=== PATIENT | male | born 1990 | race Caucasian/White ===

== ENCOUNTER 2017-09-15 15:41 | Emergency (ER) | payer SELFPAY ==
[~2017-09-15] VITALS: Ht 175.3 cm; Wt 84.0 kg
[2017-09-15 15:56] VITALS: Ht 175.3 cm; Wt 84.0 kg
[2017-09-16] MEDS ORDERED: TRAM50TA2 PO (11:12)
[2017-09-16] MEDS ORDERED: IBUP-1542 PO (11:12)
== END 2017-09-15 19:21 | disposition left against medical advice (07) ==
LOC: FTE 15:41 → E/R 19:21
DX: Z53.21 Procedure and treatment not carried out due to patient leaving prior to being seen by health care provider (principal)

== ENCOUNTER 2017-09-16 10:20 | Emergency (ER) | payer OTHER ==
[~2017-09-16] VITALS: Wt 84.2 kg
[2017-09-16] MEDS ORDERED: TRAM50TA2 PO (11:12)
[2017-09-16] MEDS ORDERED: IBUP-1542 PO (11:12)
--- NOTE | 2017-09-16 11:55 | ERD ---
ER Documentation Chief Complaint Chief Complaint TOOTH ACHE HPI 7-year-old male presents the emergency department complaining of left lower molar dental pain for the past week. Patient states that he had dental appointment next week. He was seen at a different facility 2 days ago and given [place] and amoxicillin, patient states that he compliant with antibiotic finished the [place]. He denies any fevers. ROS All systems reviewed and are negative except as per history of present illness. Medications Home Meds Active Scripts Ibuprofen* (Motrin*) 600 Mg Tab, 600 MG PO Q6H Y for PAIN AND OR ELEVATED TEMP, #30 TAB Prov:ERIBERTO MIJARES PA-C 09/16/17 Tramadol HCl (Tramadol HCl) 50 Mg Tablet, 50 MG PO Q6 Y for PAIN, #20 TAB Prov:ERIBERTO MIJARES PA-C 09/16/17 PMhx/Soc Medical and Surgical Hx: pt denies Medical Hx, pt denies Surgical Hx Hx Alcohol Use: No Hx Substance Use: No Hx Tobacco Use: No Smoking Status: Never smoker Physical Exam Vitals Vital Signs Date Time Temp Pulse Resp B/P Pulse Ox O2 Delivery O2 Flow Rate FiO2 09/16/17 10:22 99.1 98 18 138/76 99 Physical Exam Const: wdwn Head: Atraumatic Eyes: Normal Conjunctiva ENT: Normal External Ears, Nose poor dental hygiene left lower molar Neck: Full range of motion..~ No meningismus. Resp: Clear to auscultation bilaterally Cardio: Regular rate and rhythm, no murmurs Abd: Soft, non tender, non distended. Normal bowel sounds Skin: No petechiae or rashes Back: No midline or flank tenderness Ext: No cyanosis, or edema Neur: Awake and alert Psych: Normal Mood and Affect Procedures/MDM 27-year-old male presents the emergency department with left lower molar pain there is no evidence of facial cellulitis, deep space infection. Patient is stable to be discharged home to follow-up with dentist. Prescription for tramadol ibuprofen was given Departure Diagnosis: Primary Impression: Pain, dental Condition: Stable Patient Instructions: Dental Pain Additional Instructions: FOLLOW UP WITH YOUR PRIMARY CARE PHYSICIAN TOMORROW.Return to this facility if you are not improving as expected. Take all medicines as directed. Return to this facility if you are not improving as expected. ERIBERTO MIJARES-C Sep 16, 2017 11:55
== END 2017-09-16 11:25 | disposition home or self-care (01) ==
LOC: FTE 10:20
DX: K08.89 Other specified disorders of teeth and supporting structures (principal)
CPT/HCPCS: 99283

== ENCOUNTER 2017-09-23 20:12 | Emergency (ER) | payer SELFPAY ==
[~2017-09-23] VITALS: Ht 175.3 cm; Wt 86.0 kg
[~2017-09-23 20:12] MED LIST: IBUP-1542 PO; TRAM50TA2 PO
[2017-09-23 20:25] VITALS: Ht 175.3 cm; Wt 86.0 kg
--- NOTE | 2017-09-23 21:42 | ERD ---
ER Documentation Chief Complaint Chief Complaint sharp abd pain started today; hx of hep c HPI 27-year-old male presents here to emergency department for complaints of right upper quadrant abdominal pain that started today. Patient describes the pain as sharp pain, 6/10 worse with with eating. Patient has history of hepatitis C. Patient denies any nausea vomiting diarrhea or constipation. Patient without any fever or chills. Patient does not have diarrhea or constipation. ROS All systems reviewed and are negative except as per history of present illness. Medications Home Meds Active Scripts Ibuprofen* (Motrin*) 600 Mg Tab, 600 MG PO Q6H Y for PAIN AND OR ELEVATED TEMP, #30 TAB Prov:ERIBERTO MIJARES PA-C 09/16/17 Tramadol HCl (Tramadol HCl) 50 Mg Tablet, 50 MG PO Q6 Y for PAIN, #20 TAB Prov:ERIBERTO MIJARES PA-C 09/16/17 Allergies Allergies: Coded Allergies: No Known Allergy (Unverified , 09/23/17) PMhx/Soc Medical and Surgical Hx: pt denies Medical Hx, pt denies Surgical Hx Hx Alcohol Use: No Hx Substance Use: No Hx Tobacco Use: No FmHx Family History: No coronary disease, No diabetes, No other Physical Exam Vitals Vital Signs Date Time Temp Pulse Resp B/P Pulse Ox O2 Delivery O2 Flow Rate FiO2 09/23/17 20:25 98.6 118 20 138/88 97 Physical Exam GENERAL: The patient is well developed and appropriate for usual state of health, in no apparent distress. CHEST: Clear to auscultation bilaterally. There are no rales, wheezes or rhonchi. HEART: Regular rate and rhythm. No murmurs, clicks, rubs or gallops. No S3 or S4. ABDOMEN: Soft, nontender and nondistended. Good bowel sounds. No rebound or guarding. No gross peritonitis. No gross organomegaly or masses. No Jenkins sign or McBurney point tenderness. BACK: No midline or flank tenderness. EXTREMITIES: Equal pulses bilaterally. There is no peripheral clubbing, cyanosis or edema. No focal swelling or erythema. Full range of motion. Grossly neurovascularly intact. NEURO: Alert and oriented. Cranial nerves 2-12 intact. Motor strength in all 4 extremities with 5/5 strength. Sensation grossly intact. Normal speech and gait. SKIN: There is no apparent rash or petechia. The skin is warm and dry. HEMATOLOGIC AND LYMPHATIC: There is no evidence of excessive bruising or lymphedema. No gross cervical, axillary, or inguinal lymphadenopathy. Result Diagram: 09/23/17210209/23/172102 Results 24 hrs Laboratory Tests Test 09/23/17 21:03 09/23/17 21:20 White Blood Count 8.910^3/ul Red Blood Count 4.9510^6/ul Hemoglobin 14.0g/dl Hematocrit 42.9% Mean Corpuscular Volume 86.7fl Mean Corpuscular Hemoglobin 28.3pg Mean Corpuscular Hemoglobin Concent 32.6g/dl Red Cell Distribution Width 13.2% Platelet Count 13498^3/UL Mean Platelet Volume 9.1fl Neutrophils % 69.4% Lymphocytes % 20.9% Monocytes % 8.1% Eosinophils % 0.5% Basophils % 0.5% Nucleated Red Blood Cells % 0.0/100WBC Neutrophils # 6.210^3/ul Lymphocytes # 1.910^3/ul Monocytes # 0.710^3/ul Eosinophils # 0.010^3/ul Basophils # 0.010^3/ul Nucleated Red Blood Cells # 0.010^3/ul Sodium Level 141mmol/L Potassium Level 3.7mmol/L Chloride Level 99mmol/L Carbon Dioxide Level 32mmol/L Anion Gap 14 Blood Urea Nitrogen 10mg/dl Creatinine 0.76mg/dl Glucose Level 120mg/dl Calcium Level 10.1mg/dl Total Bilirubin 0.3mg/dl Direct Bilirubin 0.00mg/dl Indirect Bilirubin 0.3mg/dl Aspartate Amino Transf (AST/SGOT) 33IU/L Alanine Aminotransferase (ALT/SGPT) 73IU/L Alkaline Phosphatase 81IU/L Total Protein 7.5g/dl Albumin 4.0g/dl Globulin 3.50g/dl Albumin/Globulin Ratio 1.14 Lipase 22U/L Urine Color YELLOW Urine Clarity CLEAR Urine pH 5.0 Urine Specific [place] 1.013 Urine Ketones NEGATIVEmg/dL Urine Nitrite NEGATIVEmg/dL Urine Bilirubin NEGATIVEmg/dL Urine Urobilinogen 1+mg/dL Urine Leukocyte Esterase NEGATIVELeu/ul Urine Hemoglobin NEGATIVEmg/dL Urine Glucose NEGATIVEmg/dL Urine Total Protein NEGATIVEmg/dl PROCEDURE: US gallbladder . CLINICAL INDICATION: Abdominal Pain TECHNIQUE: Multiple real-time images were acquired of the patient's abdomen utilizing a high resolution transducer. COMPARISON: None FINDINGS: The gallbladder is visualized containing sludge. There is no pericholecystic fluid or gallbladder wall thickening. The common bile duct measures 0.4 cm in maximal dimension. No free fluid is identified. The visualized liver and right kidney appear unremarkable. IMPRESSION: 1. Gallbladder sludge with no evidence of cholecystitis. RPTAT:AAJJ Physician Juliano Date Time Electronically viewed and signed by Physician Juliano on 09/23/2017 21:58 QL/ CC: POLLO DOMINGUEZ DRUM STENCILER Procedures/MDM Medical Decision Making: Patient symptoms was likely is consistent with biliary colic. No symptoms of acute cholecystitis, choledocholithiasis or pancreatitis. There is low suspicion for abdominal emergencies at this time. Patients abdominal exam is normal at this time. Patients radiology exam does not show any abdominal emergencies at this time. There is low suspicion for appendicitis, cholecystitis, abdominal aortic aneurysms or peritonitis at this time. There is low suspicion for sepsis. Patient appears well and is hemodynamically stable. Disposition: Home. Condition: Stable Prescription Orrum, Zofran Instructions: Patient is advised to take medications as prescribed. Patient is advised to rest, increase fluid intake and do brat diet for next 1-2 days and progress as tolerated. Patient is advised that if symptoms are worse, severe abdominal pain, uncontrolled vomiting, high fever, severe flank pain, worst signs and symptoms, to return to the emergency department immediately. Otherwise, patient can follow up with primary care doctor in 5-7 days. Disclaimer: Inadvertent spelling and grammatical errors are likely due to EHR/ dictation software use and do not reflect on the overall quality of patient care. Also, please note that the electronic time recorded on this note does not necessarily reflect the actual time of the patient encounter. Departure Diagnosis: Primary Impression: Biliary colic Condition: Stable Patient Instructions: Biliary Colic With Gallstone (Confirmed) Additional Instructions: Patient is advised to take medications as prescribed. Patient is advised to rest , increase fluid intake and do brat diet for next 1-2 days and progress as tolerated. Patient is advised that if symptoms are worse, severe abdominal pain , uncontrolled vomiting, high fever, severe flank pain, worst signs and symptoms , to return to the emergency department immediately. Otherwise, patient can follow up with primary care doctor in 5-7 days. POLLO DOMINGUEZ NP Sep 23, 2017 21:42
[2017-09-23 21:54] LABS: BASOPHILS % 0.5 % (0.0-2.0); EOSINOPHILS % 0.5 % (0.0-7.0); HEMATOCRIT 42.9 % (42.0-52.0); LYMPHOCYTES # 1.9 10^3/ul (0.8-2.9); LYMPHOCYTES % 20.9 % (15.0-51.0); MEAN CORPUSCULAR HEMOGLOBIN 28.3 pg (29.0-33.0); MEAN CORPUSCULAR HGB CONC 32.6 g/dl (32.0-37.0); MEAN CORPUSCULAR VOLUME 86.7 fl (82.0-101.0); MEAN PLATELET VOLUME 9.1 fl (7.4-10.4); MONOCYTE # 0.7 10^3/ul (0.3-0.9); MONOCYTES % 8.1 % (0.0-11.0); NEUTROPHIL # 6.2 10^3/ul (1.6-7.5); NEUTROPHILS % 69.4 % (39.0-77.0); PLATELET COUNT 320 10^3/UL (140-415); RED BLOOD COUNT 4.95 10^6/ul (4.70-6.10); RED CELL DISTRIBUTION WIDTH 13.2 % (11.5-14.5); WHITE BLOOD COUNT 8.9 10^3/ul (4.8-10.8)
[2017-09-23 21:58] LABS: ADD UMIC NO; UR ASCORBIC ACID NEGATIVE (NEGATIVE); UR BILIRUBIN (Dip) NEGATIVE (NEGATIVE); UR BLOOD (Dip) NEGATIVE (NEGATIVE); UR CLARITY CLEAR (CLEAR); UR COLOR YELLOW (YELLOW); UR GLUCOSE (Dip) NEGATIVE (NEGATIVE); UR KETONES (Dip) NEGATIVE (NEGATIVE); UR LEUKOCYTE ESTERASE (Dip) NEGATIVE Leu/ul (NEGATIVE); UR NITRITE (Dip) NEGATIVE (NEGATIVE); UR SPECIFIC GRAVITY (Dip) 1.013 (1.003-1.030); UR TOTAL PROTEIN (Dip) NEGATIVE (NEGATIVE); UR UROBILINOGEN (Dip) 1+ mg/dL (NEGATIVE)
--- NOTE | 2017-09-23 21:59 | RADRPT ---
PROCEDURE: US gallbladder . CLINICAL INDICATION: Abdominal Pain TECHNIQUE: Multiple real-time images were acquired of the patient's abdomen utilizing a high resol ution transducer. COMPARISON: None FINDINGS: The gallbladder is visualized containing sludge. There is no pericholecystic fluid or gallbladder wall thickening. The common bile duct measures 0.4 cm in maximal dimension. No free fluid is identified. The visualized liver and right kidney appear unremarkable. IMPRESSION: 1. Gallbladder sludge with no evidence of cholecystitis. RPTAT:AAJJ Physician Juliano Date Time Electronically viewed and signed by Physician Juliano on 09/23/2017 21:58 QL/
[2017-09-23 22:17] LABS: ALBUMIN/GLOBULIN RATIO 1.14; BILIRUBIN,INDIRECT 0.3 mg/dl (0-1.1); BILIRUBIN,TOTAL 0.3 mg/dl (0.2-1.3); CALCIUM 10.1 mg/dl (8.4-10.2); CREATININE 0.76 mg/dl (0.61-1.24); POTASSIUM 3.7 mmol/L (3.5-5.1); TOTAL PROTEIN 7.5 g/dl (6.1-8.1)
[2017-09-23] MEDS ORDERED: ONDA4TAB14 PO (22:44)
[2017-09-23] MEDS ORDERED: HYDR-906 PO (22:44)
== END 2017-09-23 23:09 | disposition home or self-care (01) ==
LOC: FTE 20:12
DX: K80.50 Calculus of bile duct without cholangitis or cholecystitis without obstruction (principal)
CPT/HCPCS: 36415; 76705; 80053; 81003; 83690; 85025

== ENCOUNTER 2017-10-02 09:46 | Emergency (ER) | payer OTHER ==
[~2017-10-02] VITALS: Ht 167.6 cm; Wt 82.3 kg
[~2017-10-02 09:46] MED LIST changes: +HYDR-906 PO; +ONDA4TAB14 PO
[2017-10-02 09:48] VITALS: Ht 167.6 cm; Wt 82.3 kg
[2017-10-02] MEDS ORDERED: IBUP-1542 PO (11:39)
--- NOTE | 2017-10-03 00:54 | ERD ---
ER Documentation Chief Complaint Chief Complaint Complains of abdominal pain x 3 days HPI Patient is a 27-year-old male with a past medical history of hepatitis C who presents to the ED for concerns of right upper quadrant pain 2 weeks. Patient was seen here on 09-23-17 for concerns of right upper quadrant abdominal pain. At that time he underwent a full workup which showed that he had gallbladder sludge without evidence of cholecystitis. Patient presents today for copy of all his blood work and imaging studies given the he eloped from his visit on 09-23-17. Patient states he does continue to have mild right upper quadrant pain. Patient reports nausea however he denies any vomiting. Patient denies any fevers or chills. Patient denies any chest pain, shortness of breath, left upper extremity pain, loss of consciousness. Patient states he only wants his paperwork and does not wish to undergo any repeat tests at this time. ROS All systems reviewed and are negative except as per history of present illness. Medications Home Meds Active Scripts Ibuprofen* (Motrin*) 600 Mg Tab, 600 MG PO Q6, #30 TAB Prov:FINN RINCON PA-C 10/02/17 Ondansetron (Ondansetron Odt) 4 Mg Tab.rapdis, 4 MG PO Q6H Y for NAUSEA AND/OR VOMITING, #20 TAB Prov:POLLO DOMINGUEZ NP 09/23/17 Hydrocodone/Acetaminophen ([place] 5-325 Tablet) 1 Each Tablet, 1 TAB PO Q6H Y for SEVERE PAIN LEVEL 7-10, #20 TAB Prov:POLLO DOMINGUEZ NP 09/23/17 Ibuprofen* (Motrin*) 600 Mg Tab, 600 MG PO Q6H Y for PAIN AND OR ELEVATED TEMP, #30 TAB Prov:ERIBERTO MIJARES PA-C 09/16/17 Tramadol HCl (Tramadol HCl) 50 Mg Tablet, 50 MG PO Q6 Y for PAIN, #20 TAB Prov:ERIBERTO MIJARES PA-C 09/16/17 Allergies Allergies: Coded Allergies: No Known Allergy (Unverified , 09/23/17) PMhx/Soc Medical and Surgical Hx: pt denies Surgical Hx History of Surgery: No Hx Neurological Disorder: No Hx Miscellaneous Medical Probl: Yes (HEPATITIS C, Kidney stones) Hx Alcohol Use: Yes (ocassionally) Hx Substance Use: Yes (Marijuana) Hx Tobacco Use: No Smoking Status: Never smoker Physical Exam Vitals Vital Signs Date Time Temp Pulse Resp B/P Pulse Ox O2 Delivery O2 Flow Rate FiO2 10/02/17 09:48 98.9 93 20 134/73 100 Physical Exam GENERAL: Well-developed, well-nourished male. Appears in no acute distress. HEAD: Normocephalic, atraumatic. EYES: Pupils are equally reactive bilaterally. EOMs grossly intact. No conjunctival erythema. ENT: Moist mucous membranes. No uvula deviation. No kissing tonsils. NECK: Supple. No meningismus. Normal range of motion of the neck. LUNG: Clear to auscultation bilaterally. No rhonchi, wheezing, rales or coarse breath sounds. HEART: Regular rate and rhythm. No murmurs, rubs or gallops. ABDOMEN: Soft, nontender, and nondistended. Positive bowel sounds in all four quadrants. No rebound tenderness, no guarding. (-) McBurney's point tenderness. No CVA tenderness. EXTREMITIES: Equal pulses bilaterally. No peripheral clubbing, cyanosis or edema. No unilateral leg swelling. NEUROLOGIC: Alert and oriented. Moving all four extremities without any difficulty. Normal speech. Steady gait. SKIN: Normal color. Warm and dry. No rashes or lesions. Procedures/MDM MEDICAL DECISION MAKING: Patient is 27-year-old male with history of hepatitis C and biliary colic presents ED for concerns of right upper quadrant pain 2 weeks. Patient states he is here today only to get his lab results and imaging studies from his previous visit on 09-23-17. Patient eloped on 09-23-17 without any paperwork or prescriptions. Patient states he was told that he had biliary colic and may need to have his gallbladder removed however he did not have any paperwork or follow-up instructions. Vital signs were reviewed. Patient is afebrile. Patient was not hypoxic. Patient was hemodynamically stable. GILBERTO report was generated and showed that patient had 11 visits to the ER in the last 12 months. Given that patient continued to have right upper quadrant pain, I did feel that repeat blood work/imaging was appropriate at this time to ensure that there were no changes in his condition. Patient did not wish to have repeat testing done today. I explained to the patient at length that I am unable to rule out any acute abdominal conditions at this time including but not limited to acute cholecystitis, choledocholithiasis, liver failure or pancreatitis. Patient understood and continued to decline all testing today. Patient stated that he wished to sign out AMA. Patient did sign an AMA form prior to discharge. Patient was given a copy of all previous blood work and imaging studies. Patient was also given referral information for general surgery as he likely will require cholecystectomy. DISCHARGE: At this time, despite my efforts, the patient has decided to leave the emergency room against medical advice (AMA). The patient displays full decision- making capacity. The patient is over the age of 18. The patient exhibits no evidence of altered level of consciousness or alcohol/drug ingestion that would impair his judgment. I have explained to the patient the risks of leaving AMA including, but not limited to permanent disability and/or . The patient has had the opportunity to ask questions about his condition. The patient has been informed that he may return to the emergency room for care at any time. I have advised the patient to also follow up with his primary care physician RD. Disclaimer: Inadvertent spelling and grammatical errors are likely due to EHR/ dictation software use and do not reflect on the overall quality of patient care. Also, please note that the electronic time recorded on this note does not necessarily reflect the actual time of the patient encounter. Departure Diagnosis: Primary Impression: Right upper quadrant abdominal pain Additional Impression: Biliary colic Condition: Fair Patient Instructions: Abdominal Pain Referrals: JAIRO FLORES MD,EDGAR BANKS,ALEXANDRE OVALLES MD, M.D. [facility] YOU HAVE RECEIVED A MEDICAL SCREENING EXAM AND THE RESULTS INDICATE THAT YOU DO NOT HAVE A CONDITION THAT REQUIRES URGENT TREATMENT IN THE EMERGENCY DEPARTMENT. FURTHER EVALUATION AND TREATMENT OF YOUR CONDITION CAN WAIT UNTIL YOU ARE SEEN IN YOUR DOCTORS OFFICE WITHIN THE NEXT 1-2 DAYS. IT IS YOUR RESPONSIBILITY TO MAKE AN APPOINTMENT FOR FOLOW-UP CARE. IF YOU HAVE A PRIMARY DOCTOR --you should call your primary doctor and schedule an appointment IF YOU DO NOT HAVE A PRIMARY DOCTOR YOU CAN CALL OUR PHYSICIAN REFERRAL HOTLINE AT IF YOU CAN NOT AFFORD TO SEE A PHYSICIAN YOU CAN CHOSE FROM THE FOLLOWING [facility] [address] [facility] [address] [facility] [address] [facility] [address] [facility] [address] [facility]. [facility]. [address] [facility]. [facility] YOU HAVE RECEIVED A MEDICAL SCREENING EXAM AND THE RESULTS INDICATE THAT YOU DO NOT HAVE A CONDITION THAT REQUIRES URGENT TREATMENT IN THE EMERGENCY DEPARTMENT. FURTHER EVALUATION AND TREATMENT OF YOUR CONDITION CAN WAIT UNTIL YOU ARE SEEN IN YOUR DOCTORS OFFICE WITHIN THE NEXT 1-2 DAYS. IT IS YOUR RESPONSIBILITY TO MAKE AN APPOINTMENT FOR FOLOW-UP CARE. IF YOU HAVE A PRIMARY DOCTOR --you should call your primary doctor and schedule and appointment IF YOU DO NOT HAVE A PRIMARY DOCTOR YOU CAN CALL OUR PHYSICIAN REFERRAL HOTLINE AT . IF YOU CAN NOT AFFORD TO SEE A PHYSICIAN YOU CAN CHOSE FROM THE FOLLOWING [facility] INSTITUTIONS: [facility] [address] [place] [address] [facility] [address] [place] [address] [facility] [address] [place] [address] Additional Instructions: Follow up with your doctor for referral to surgeon. You may need gallbladder removal on an outpatient basis. Call your primary care doctor TOMORROW for an appointment during the next 1-2 days.See the doctor sooner or return here if your condition worsens before your appointment time. FINN RINCON PA-C Oct 03, 2017 00:54
== END 2017-10-02 11:45 | disposition left against medical advice (07) ==
LOC: FTE 09:46
DX: K80.50 Calculus of bile duct without cholangitis or cholecystitis without obstruction (principal)
CPT/HCPCS: 99283

== ENCOUNTER 2017-10-15 14:48 | Emergency (ER) | payer SELFPAY ==
[~2017-10-15] VITALS: Ht 177.8 cm; Wt 84.1 kg
[2017-10-15 15:08] VITALS: Ht 177.8 cm; Wt 84.1 kg
== END 2017-10-16 02:08 | disposition left against medical advice (07) ==
LOC: FTE 14:48
DX: Z53.21 Procedure and treatment not carried out due to patient leaving prior to being seen by health care provider (principal)

== ENCOUNTER 2017-11-05 09:24 | Emergency (ER) | END 2017-11-05 11:24 | disposition left against medical advice (07) ==

== ENCOUNTER 2018-04-26 23:20 | Emergency (ER) | END 2018-04-26 23:28 | disposition left against medical advice (07) ==

== ENCOUNTER 2018-05-01 16:35 | Emergency (ER) | END 2018-05-01 17:16 | disposition left against medical advice (07) ==